=== PATIENT | female | born 1950 | race Caucasian/White ===

== ENCOUNTER 2023-08-30 12:07 | Emergency (ER) | payer OTHER, MEDICARE ==
[~2023-08-30] VITALS: Ht 165.1 cm; Wt 72.6 kg
[2023-08-30 12:20] VITALS: BP_SYST 147; PULSE 75; RESP 18; TEMP 98.1; O2SAT 98
[2023-08-30] MEDS ORDERED: NIRM1TAB5 PO (13:52)
[2023-08-30] MEDS ORDERED: ALBMDI INH (13:52)
== END 2023-08-30 14:05 | disposition home or self-care (01) ==
LOC: SED 12:07
DX: U07.1 COVID-19 (principal); R51.9 Headache, unspecified
CPT/HCPCS: 71045; 99283